=== PATIENT | female | born 1985 | race Caucasian/White ===

== ENCOUNTER 2017-03-15 19:09 | Emergency (ER) | payer BC ==
[~2017-03-15] VITALS: Ht 175.3 cm; Wt 92.8 kg
[2017-03-15 19:17] VITALS: BP 136/93; PULSE 95; RESP 18; TEMP 98.3; O2SAT 99
[2017-03-15] MEDS ORDERED: TRAZ100T6 PO (19:34)
[2017-03-15] MEDS ORDERED: ZOLO100T PO (19:34)
[2017-03-15] MEDS ORDERED: DILA2TAB2 PO ×2 (19:34→20:06)
[2017-03-15] MEDS ORDERED: ZOFR4TAB PO (20:16)
--- NOTE | 2017-03-15 20:24 | PD ---
HPI Chief Complaint: Medication Refill Request Time Seen by Provider: 19:57 Travel History International Travel<30 days: No Contact w/Intl Traveler<30days: No Traveled to known affect area: No History of Present Illness HPI 32-year-old female presents to the emergency room requesting refill of her Dilaudid. Patient had brain surgery for Chiari malformation 6 days ago at [facility] with Dr. Saravia. She was discharged from the hospital 3 days ago with Dilaudid and took her last dose this morning. She has been contacting her neurosurgeon's office all day yesterday and today and they never got back to her. The office told her that normally her primary care physician would refill her narcotic pain medication but [place] from [place] ([place] and does not have a PCP in the area so she has no other way to have it filled. Patient reports pain is not the worst she has ever had in her life. States it is well controlled with the medication but when it wears out, the pain is not manageable without medication. She has also been taking Zofran. Patient denies any fevers. Reports significant improvement from overall health after surgery. The only other medications she takes Zoloft for PTSD. PFSH Past Medical History Medical History: Denies Significant Hx Tetanus Vaccination: < 5 Years Influenza Vaccination: No ?: Not LMP: Mirena Past Surgical History Neurologic Surgery: Yes (Chiari malformation ) Social History Alcohol Use: Yes (Social) Tobacco Use: No Substance Use: No Allergies-Medications (Allergen,Severity, Reaction): Coded Allergies: Sulfa (Sulfonamide Antibiotics) (Verified Allergy, Intermediate, Rash, 03/15) Reported Meds & Prescriptions Reported Meds & Active Scripts Active Zofran (Ondansetron HCl) 4 Mg Tab 4 Mg PO Q6HR PRN Dilaudid (Hydromorphone HCl) 2 Mg Tab 2 Mg PO Q4H PRN Reported Dilaudid (Hydromorphone HCl) 2 Mg Tab 2 Mg PO Q4H PRN Trazodone (Trazodone HCl) 100 Mg Tablet 100 Mg PO HS Zoloft (Sertraline HCl) 100 Mg Tab 100 Mg PO HS Review of Systems Except as stated in HPI: all other systems reviewed are Neg Physical Exam Narrative GENERAL: Well-nourished, well-developed female in no acute distress. Afebrile. Ambulatory. SKIN: Focused skin assessment warm/dry. There is a well-healed surgical scar in the middle of the posterior scalp. Dissolvable sutures are intact. No erythema, edema, lymphangitis, or drainage. Mildly tender at the superior portion. HEAD: Normocephalic. EYES: No scleral icterus. No injection or drainage. ENT: Mucosa pink and moist. No erythema or exudates. No uvular edema. No uvular , palatal, or tonsillar deviation. Airway patent. Nasal turbinates appear normal without nasal blood, purulent drainage or septal hematoma. EARS: Bilateral pinnae and external canals appear within normal limits. Bilateral tympanic membranes without erythema, dullness or perforation. No hemotympanum. NECK: Supple, trachea midline. No JVD or lymphadenopathy. CARDIOVASCULAR: Regular rate and rhythm without murmurs, gallops, or rubs. RESPIRATORY: Breath sounds equal bilaterally. No accessory muscle use. NEUROLOGICAL: Awake and alert. Cranial nerves II through XII intact. Motor and sensory grossly within normal limits. Five out of 5 muscle strength in all muscle groups. Normal speech. No pronator drift in upper or lower extremities. Data Data Last Documented VS Vital Signs Date Time Temp Pulse Resp B/P (MAP) Pulse Ox O2 Delivery O2 Flow Rate FiO2 03/15/17 19:17 98.3 95 18 136/93 (107) 99 MDM Medical Decision Making Medical Screen Exam Complete: Yes Emergency Medical Condition: Yes Medical Record Reviewed: Yes Differential Diagnosis Medication refill, postsurgery pain, headache Narrative Course 32-year-old female presents to the emergency room requesting refill of Dilaudid and Zofran after having brain surgery 6 days ago. Patient was discharged from the hospital 3 days ago and ran off her medication today. She has been contacting her neurosurgeon's office but they have not gone back to her to refill her medication. Physical exam is reassuring. No focal neurological deficits. Vital signs stable. Incision site looks well and closed without evidence of acute infection. [place] and does not have a PCP in the area to follow-up with or have her medications filled. She will be given #20 Dilaudid and #20 Zofran. Patient was told to follow-up with her neurosurgeon tomorrow about chronic management of pain while [place] state. Informed that if her neurosurgeon will not return her calls, she can come to the emergency room for further treatment. Told to return immediately for worsening symptoms. She understands and agrees to plan. Diagnosis Primary Impression: Postoperative pain Referrals: Neurosurgeon Primary Care Physician Additional Instructions: Rest and drink plenty of fluids. Take Dilaudid as directed, as needed for pain. Do not drink alcohol or drive while taking this medication. Take Zofran with food as directed, as needed for nausea. Follow-up with a primary care physician. Return to the emergency room for worsening symptoms. Med/Other Pt SpecificInfo: Prescription(s) given Scripts Ondansetron (Zofran) 4 Mg Tab 4 MG PO Q6HR Y for NAUSEA OR VOMITING, #20 TAB 0 Refills Prov: Lizzy Maurice MD 03/15/17 Hydromorphone (Dilaudid) 2 Mg Tab 2 MG PO Q4H Y for Pain Management, #20 TAB 0 Refills Prov: Lizzy Maurice MD 03/15/17 Disposition: 01 DISCHARGE HOME Condition: Stable Lexis Graham Mar 15, 2017 20:23
== END 2017-03-15 20:30 | disposition home or self-care (01) ==
LOC: PHEFT 19:09
DX: G89.18 Other acute postprocedural pain (principal)
CPT/HCPCS: 99281